=== PATIENT | female | born 2000 | race Caucasian/White ===

== ENCOUNTER 2019-01-25 20:24 | Emergency (ER) | payer OTHER ==
[2019-01-25] MEDS ORDERED: Proparacaine 0.5% Ophth Soln 15 ML Bottle EYEBOTH ONE (20:33)
[2019-01-25] MEDS ORDERED: Fluorescein 0.6 MG Ophth Strip EYEBOTH ONE (22:01)
--- NOTE | 2019-01-25 22:25 | EDM.PDOC ---
ED HPI GENERAL MEDICAL PROBLEM - General Chief Complaint: Eye Problems Stated Complaint: SORE EYES Time Seen by Provider: 01/25/19 20:53 Source of Information: Reports: Patient History Limitations: Reports: No Limitations - History of Present Illness INITIAL COMMENTS - FREE TEXT/NARRATIVE: 18 yo F comes in to ED for complaints of bilateral eye pain that started this morning after putting in her contact lenses. She states her eyes started burning and itching and her vision was blurry. She does have h/o chronic dry eyes, but her eye drops at home did not help. She also tried Benadryl at home with no relief. She re-inserted her contacts several times throughout the day and her eyes continued to get worse. She states she wears monthly contacts, changes them every month, keeps her contacts clean in solution, cleans them before putting in her eyes, and takes them out at night. Currently her eyes ( including the eyelids) are red and swollen and there is some purulent drainage from the right eye at this time. She has never had symptoms like this before. She does have false eyelashes in, they were put on last Sunday. She has had them before without a problem. No other people around her with similar symptoms. No other concerns at this time. Bilateral Eye Pain Score (Numeric/FACES): 8 - Related Data Allergies Allergy/AdvReac Type Severity Reaction Status Date / Time almond oil Allergy Difficulty Verified 07/14/15 16:41 Swallowing grass pollen Allergy Sneezing Verified 07/14/15 16:42 Home Meds: Home Meds Ciprofloxacin [Ciloxan 0.3% Ophth Soln] 1 drop EYEBOTH Q4H #1 bottle 01/25/19 [ Rx] Past Medical History HEENT History: Reports: Other (See Below) Other HEENT History: chronic dry eyes Social & Family History - Tobacco Use Smoking Status *Q: Current Every Day Smoker Years of Tobacco use: 1 Packs/Tins Daily: 1 - Caffeine Use Caffeine Use: Reports: Energy Drinks, Soda - Recreational Drug Use Recreational Drug Use: No ED ROS GENERAL - Review of Systems Review Of Systems: ROS reveals no pertinent complaints other than HPI. ED EXAM GENERAL W FULL EYE - Physical Exam Exam: See Below Exam Limited By: No Limitations General Appearance: Alert, WD/WN, Moderate Distress Eye Exam: Bilateral Eye: Conjunctival Injection, EOMI, PERRL Visual Acuity (R) 20/: 20 Visual Acuity (L) 20/: 40 With Correction: No Eyelids: Bilateral: Edema, Erythema Conjunctiva & Sclera: Right: Discharge, Bilateral: Conjunctival Edema, Injected Cornea Exam: Bilateral: Examined with Flourescein (nothing acute seen) Extraocular Movements: Bilateral: Intact Pupils: Normal Accommodation Ears: Normal External Exam, Hearing Grossly Normal Nose: Normal Inspection, Normal Mucosa, No Blood Throat/Mouth: Normal Inspection, Normal Lips, Normal Teeth, Normal Gums, Normal Oropharynx, Normal Voice, No Airway Compromise Neurological: Alert, Oriented, CN II-XII Intact, Normal Cognition, Normal Gait, Normal Reflexes, No Motor/Sensory Deficits Psychiatric: Normal Affect, Normal Mood Skin Exam: Warm, Dry, Intact, Normal Color, No Rash ED EYE w/ Add Procedure - Additional/Other Procedure(s) Other (Free Text) Procedure(s) [Text1]: Fluorescein stain administered with Proparacaine drops, Wood's lamp used to visualize any abrasion or foreign body- none noted. Course - Vital Signs Last Recorded V/S: Last Vital Signs Temp 98.4 F 01/25/19 20:39 Pulse 82 01/25/19 20:39 Resp 20 01/25/19 20:39 BP 127/77 01/25/19 20:39 Pulse Ox 100 01/25/19 20:39 - Orders/Labs/Meds Meds: Medications Discontinued Medications Generic Name Dose Route Start Last Admin Trade Name Karina PRN Reason Stop Dose Admin Fluorescein Sodium 0.6 mg 01/25/19 22:01 01/25/19 22:16 Ful-Lori EYEBOTH 01/25/19 22:02 0.6 mg ONETIME ONE Administration Proparacaine HCl 2 ml 01/25/19 20:33 01/25/19 20:43 Proparacaine 0.5% Ophth Soln EYEBOTH 01/25/19 20:34 2 ml ONETIME ONE Administration - Re-Assessments/Exams Free Text/Narrative Re-Assessment/Exam: 01/25/19 22:17 Fluorescein stain with Wood's lamp shows no corneal abrasion or foreign body. This is likely infectious d/t contact lenses and/or false eyelashes. Will send home with antibiotic drops and recommend f/u with ophthalmology. Departure - Departure Time of Disposition: 22:31 Disposition: Home, Self-Care 01 Condition: Fair Clinical Impression: Conjunctivitis Qualifiers: Conjunctivitis type: acute Acute conjunctivitis type: bacterial Laterality: bilateral Qualified Code(s): H10.33 - Unspecified acute conjunctivitis, bilateral - Discharge Information *PRESCRIPTION DRUG MONITORING PROGRAM REVIEWED*: Not Applicable *COPY OF PRESCRIPTION DRUG MONITORING REPORT IN PATIENT PRADEEP: Not Applicable Prescriptions: Ciprofloxacin [Ciloxan 0.3% Ophth Soln] 1 drop EYEBOTH Q4H #1 bottle Instructions: Bacterial Conjunctivitis, [id number], How to Use Eye Drops and Eye Ointments Referrals: Sherri Larose NP [Primary Care Provider] - Forms: ED Department Discharge Additional Instructions: You were seen in the ED today for bilateral eye pain, redness, and discharge x 1 day. At this time, it looks that you have a probable infection of both eyes that have also extended to your eyelids. The cause is likely your contact lenses and artificial eyelashes. Your eyes were examined here and no abrasions or foreign bodies were found. Recommend stop wearing your contact lenses, removal of your false eyelashes, use cold compresses and oral nonsteroidal antiinflammatory drugs (ibuprofen/Advil) for pain management. Will also send you home with a prescription for antibiotic eye drops, Cipro- instill 1-2 drops into the eye every 2 hrs while awake for 2 days and 1-2 drops every 4 hrs while awake for the next 5 days. Recommend close follow-up with hot worker and primary care physician within the next 5 days. Please return to ED if new or worsening symptoms.
== END 2019-01-25 22:45 | disposition home or self-care (01) ==
LOC: JD.ED 20:24
DX: H10.33 Unspecified acute conjunctivitis, bilateral (principal); F17.210 Nicotine dependence, cigarettes, uncomplicated; Z91.018 Allergy to other foods; Z91.09 Other allergy status, other than to drugs and biological substances
CPT/HCPCS: 99282; 99283